=== PATIENT | female | born 1950 | race Two or more races ===

== ENCOUNTER 2024-07-14 20:33 | Inpatient (IN) | payer OTHER, MEDICAID ==
[~2024-07-14] VITALS: Ht 157.5 cm; Wt 90.7 kg
[2024-07-14 21:44] LABS: Basophils # (auto) 0.1 10 ^3/uL (0-0.2); Basophils % (auto) 2.4 % (0.0-2.0); Eosinophils # (auto) 0.2 10 ^3/uL (0-0.8); Eosinophils % (auto) 4.2 % (0.0-7.0); Hematocrit 34.6 % (36.0-46.0); Hemoglobin 11.6 g/dL (12.2-16.2); Lymphocytes # (auto) 1.1 10 ^3/uL (0.4-5.4); Lymphocytes % (auto) 29.1 % (10.0-50.0); Mean Corpuscular Hemoglobin 32.3 pg (28.0-32.0); Mean Corpuscular Hgb Conc. 33.6 g/dL (32.0-36.0); Mean Corpuscular Volume 96.2 fL (80.0-100.0); Monocytes # (auto) 0.4 10 ^3/uL (0-1.3); Monocytes % (auto) 9.6 % (0.0-12.0); Neutrophils % (auto) 54.7 % (37.0-80.0); Nucleated Red Blood Cells % 0.1 %; Platelet Count (auto) 141 10^3/uL (140-450); White Blood Cell 3.7 10^3/uL (4.4-10.8)
[2024-07-14 21:45] LABS: Red Cell Distribution Width 21.9 % (11.8-14.3)
[2024-07-14 22:00] VITALS: PULSE 107; RESP 17; O2SAT 97
[2024-07-14 22:01] LABS: Alanine Aminotransferase 80 U/L (7-40); Albumin 3.6 g/dL (3.2-4.8); Alkaline Phosphatase 60 U/L (46-116); Anion Gap 9 (5-15); Aspartate Aminotransferase 206 U/L (13-40); BUN/Creatinine Ratio 18.9 (10.0-20.0); Blood Urea Nitrogen 27 mg/dL (9-23); Calcium 9.8 mg/dL (8.7-10.4); Carbon Dioxide 27 mmol/L (20-31); Chloride 100 mmol/L (98-107); Potassium 4.6 mmol/L (3.5-5.1); Sodium 136 mmol/L (136-145)
[2024-07-14 22:02] LABS: Total Protein 7.2 g/dL (5.7-8.2)
[2024-07-14 22:10] LABS: Glucose 471 mg/dL (74-106)
[2024-07-14] MEDS: InsuLIN REG 1unit/0.01ml Soln (100units/ml) IV ONE ×2 (22:18→23:56)
[2024-07-15] VITALS (63 sets, daily range): BP systolic 79–126; BP diastolic 42–89; PULSE 76–116; RESP 12–33; TEMP 98.7–98.8; O2SAT 92–100
[2024-07-15] MEDS ORDERED: MORPHINE SULFATE INJ 2 MG/ml SYRG IV PRN
[2024-07-15] MEDS ORDERED: DEXTROSE (50%) 50ML SYRG IV PRN (00:15)
[2024-07-15] MEDS ORDERED: ONDANSETRON HCL 4 MG/2 ML VIAL IV PRN (00:15)
[2024-07-15] MEDS: NITROGLYCERIN 0.4 MG SL TAB SL PRN (00:55)
[2024-07-15] MEDS: ALBUMIN 25% 50 ML IV SCH (01:51)
[2024-07-15] MEDS: FUROSEMIDE 40 MG/4 ML VIAL IV ONE (02:02)
[2024-07-15] MEDS: PHENYLEPHRINE IV 250 ML IV SCH ×2 (03:59→15:11)
[2024-07-15] MEDS: InsuLIN REG 1unit/0.01ml Soln (100units/ml) SC SCH (04:07)
[2024-07-15] MEDS: ACCU-CHEK COMFORT CURVE STRIP VI SCH (04:09)
[2024-07-15] MEDS: FUROSEMIDE 20 MG/2 ML VIAL IV SCH (06:38)
[2024-07-15] MEDS: GABAPENTIN 300 MG CAP PO SCH (06:38)
[2024-07-15 10:02] LABS: Basophils # (auto) 0.1 10 ^3/uL (0-0.2); Basophils % (auto) 2.4 % (0.0-2.0); Eosinophils # (auto) 0.2 10 ^3/uL (0-0.8); Eosinophils % (auto) 5.4 % (0.0-7.0); Hematocrit 35.8 % (36.0-46.0); Hemoglobin 11.8 g/dL (12.2-16.2); Lymphocytes # (auto) 1.1 10 ^3/uL (0.4-5.4); Lymphocytes % (auto) 31.9 % (10.0-50.0); Mean Corpuscular Hemoglobin 31.4 pg (28.0-32.0); Mean Corpuscular Hgb Conc. 33.1 g/dL (32.0-36.0); Mean Corpuscular Volume 94.7 fL (80.0-100.0); Monocytes # (auto) 0.4 10 ^3/uL (0-1.3); Monocytes % (auto) 12.8 % (0.0-12.0); Neutrophils # (auto) 1.6 10 ^3/uL (1.6-8.6); Neutrophils % (auto) 47.5 % (37.0-80.0); Nucleated Red Blood Cells % 0.2 %; Platelet Count (auto) 118 10^3/uL (140-450); Red Blood Cells 3.78 10^6/uL (4.0-5.20); White Blood Cell 3.3 10^3/uL (4.4-10.8)
[2024-07-15 10:25] LABS: Alanine Aminotransferase 77 U/L (7-40); Albumin 4.1 g/dL (3.2-4.8); Alkaline Phosphatase 50 U/L (46-116); Anion Gap 7 (5-15); Aspartate Aminotransferase 215 U/L (13-40); BUN/Creatinine Ratio 20.5 (10.0-20.0); Blood Urea Nitrogen 25 mg/dL (9-23); Calcium 10.2 mg/dL (8.7-10.4); Carbon Dioxide 29 mmol/L (20-31); Chloride 104 mmol/L (98-107); Glucose 124 mg/dL (74-106); Magnesium 1.9 mg/dL (1.6-2.6); Potassium 3.8 mmol/L (3.5-5.1); Sodium 140 mmol/L (136-145)
[2024-07-15 10:26] LABS: Bilirubin, Total 1.1 mg/dL (0.2-1.0); Total Protein 7.4 g/dL (5.7-8.2)
[2024-07-15] MEDS: ASPirin 81 mg TAB PO SCH (12:18)
[2024-07-15 14:28] LABS: INR 1.18 (0.9-1.15); Prothrombin Time 12.4 sec (9.3-11.8)
[2024-07-15] MEDS ORDERED: GABA-339 PO (14:49)
[2024-07-15] MEDS ORDERED: VALP1CAP4 PO (14:49)
[2024-07-15] MEDS ORDERED: METO25TA5 PO (14:49)
[2024-07-15] MEDS ORDERED: ATOR-47 PO (14:49)
[2024-07-15] MEDS ORDERED: AMIO200T33 PO (14:49)
[2024-07-15] MEDS ORDERED: FERR325T24 PO (14:49)
[2024-07-15] MEDS ORDERED: SENN-62 PO (14:49)
[2024-07-15] MEDS ORDERED: SERT-206 PO (14:49)
[2024-07-15] MEDS ORDERED: RIVA20TA PO (14:49)
[2024-07-15] MEDS ORDERED: ASPI325T6 PO (14:49)
[2024-07-15] MEDS: SERTRALINE HCL 50 MG TAB PO ONE (15:32)
[2024-07-15] MEDS: VALPROIC ACID 250 MG/5 ML ORAL SOLN PO ONE (15:33)
[2024-07-15] MEDS: RIVAROXABAN 15 MG TAB PO SCH (18:09)
[2024-07-15] MEDS: ATORVASTATIN 20 MG TAB PO SCH (22:00)
[2024-07-15] MEDS: VALPROIC ACID 250 MG/5 ML ORAL SOLN PO SCH (22:00)
[2024-07-15] MEDS ORDERED: ATORVASTATIN 20 MG TAB PO SCH (22:00)
[2024-07-16 06:14] LABS: Anion Gap 8 (5-15); Calcium 9.4 mg/dL (8.7-10.4); Carbon Dioxide 25 mmol/L (20-31); Chloride 106 mmol/L (98-107); Potassium 3.5 mmol/L (3.5-5.1); Sodium 139 mmol/L (136-145)
[2024-07-16 06:20] LABS: BUN/Creatinine Ratio 16.8 (10.0-20.0); Blood Urea Nitrogen 17 mg/dL (9-23); Glucose 223 mg/dL (74-106)
[2024-07-16 07:25] VITALS: PULSE 117; RESP 11; O2SAT 96
[2024-07-16] MEDS ORDERED: VALPROIC ACID 250 MG/5 ML ORAL SOLN PO SCH (10:00)
[2024-07-16 10:04] LABS: Basophils # (auto) 0.1 10 ^3/uL (0-0.2); Basophils % (auto) 1.8 % (0.0-2.0); Eosinophils # (auto) 0.2 10 ^3/uL (0-0.8); Eosinophils % (auto) 6.2 % (0.0-7.0); Hematocrit 33.1 % (36.0-46.0); Hemoglobin 10.9 g/dL (12.2-16.2); Lymphocytes # (auto) 0.8 10 ^3/uL (0.4-5.4); Lymphocytes % (auto) 23.8 % (10.0-50.0); Mean Corpuscular Hemoglobin 32.2 pg (28.0-32.0); Mean Corpuscular Hgb Conc. 32.8 g/dL (32.0-36.0); Mean Corpuscular Volume 98.2 fL (80.0-100.0); Monocytes # (auto) 0.5 10 ^3/uL (0-1.3); Monocytes % (auto) 15.1 % (0.0-12.0); Neutrophils # (auto) 1.8 10 ^3/uL (1.6-8.6); Neutrophils % (auto) 53.1 % (37.0-80.0); Nucleated Red Blood Cells % 0.1 %; Platelet Count (auto) 116 10^3/uL (140-450); Red Blood Cells 3.38 10^6/uL (4.0-5.20); Red Cell Distribution Width 21.7 % (11.8-14.3); White Blood Cell 3.4 10^3/uL (4.4-10.8)
[2024-07-16] MEDS: METOPROLOL SUCCINATE XL 50 MG TAB PO SCH (10:56)
[2024-07-16] MEDS: ASPirin 81 mg TAB PO SCH (10:57)
[2024-07-16] MEDS: SERTRALINE HCL 50 MG TAB PO SCH (10:58)
[2024-07-16] MEDS: METOPROLOL TARTRATE 1MG/1ML-5ML VIAL IV ONE (12:08)
[2024-07-16] MEDS: METOPROLOL SUCCINATE XL 50 MG TAB PO ONE (13:14)
[2024-07-16 14:59] VITALS: PULSE 114; RESP 17; O2SAT 98
[2024-07-16 17:05] VITALS: BP 85/54; PULSE 97; RESP 17; TEMP 98.3; O2SAT 98
[2024-07-16] MEDS ORDERED: INSUINJ37 SC (17:18)
[2024-07-16] MEDS ORDERED: GLYB5TAB8 PO (17:18)
[2024-07-16] MEDS ORDERED: ERGO500086 PO (17:18)
[2024-07-16] MEDS ORDERED: ATOR20TA50 PO (17:18)
[2024-07-16] MEDS ORDERED: ASPI81CH74 PO (17:18)
[2024-07-16] MEDS ORDERED: METF-372 PO (17:18)
[2024-07-16 19:47] VITALS: BP 92/58
[2024-07-16 19:53] LABS: Urine Bacteria FEW /hpf (None Seen); Urine Blood 2+ /uL (Negative); Urine Clarity Clear (Clear); Urine Color Yellow (Yellow); Urine Mucus FEW (None Seen); Urine Protein, UAD 1+ (Negative); Urine Specific Gravity 1.018 (1.001-1.035); Urine Urobilinogen 3 mg/dL (Negative); Urine WBC 3 /hpf (0 - 5)
[2024-07-16 20:00] VITALS: PULSE 115; RESP 20; O2SAT 99
[2024-07-16 20:06] LABS: Amphetamine Screen, Urine Neg (NEGATIVE); Barbiturate Scree,Urine Neg (NEGATIVE); Benzodiazephine Screen, Urine Neg (NEGATIVE); Cocaine Screen, Urine Neg (NEGATIVE); Opiate Scree,Urine Neg (NEGATIVE); Phencyclidine Screen, Urine Neg (NEGATIVE)
[2024-07-16 20:07] LABS: Cannabinoid Screen, Urine Neg (NEGATIVE)
[2024-07-16 21:00] VITALS: BP 110/73; PULSE 117; RESP 19; TEMP 98; O2SAT 98
[2024-07-16] MEDS: GABAPENTIN 400 MG CAP PO SCH (21:32)
[2024-07-16] MEDS: INSULIN LANTUS (GLARGINE) 1 /0.01ml (100units/ml) SC SCH (21:48)
[2024-07-17] VITALS (8 sets, daily range): BP systolic 90–121; BP diastolic 52–82; PULSE 78–131; RESP 15–19; TEMP 97.8–98.3; O2SAT 97–100
[2024-07-17] MEDS: METOPROLOL SUCCINATE XL 50 MG TAB PO SCH (10:00)
[2024-07-17] MEDS: METOPROLOL TARTRATE 1MG/1ML-5ML VIAL IV ONE ×2 (15:16→19:23)
[2024-07-17] MEDS: SPIRONOLACTONE 25 MG TAB PO ONE (15:38)
[2024-07-17] MEDS: FUROSEMIDE 20 MG TAB PO SCH (17:22)
[2024-07-17 18:10] LABS: Basophils # (auto) 0 10 ^3/uL (0-0.2); Basophils % (auto) 1.2 % (0.0-2.0); Eosinophils # (auto) 0.1 10 ^3/uL (0-0.8); Eosinophils % (auto) 3.6 % (0.0-7.0); Hematocrit 32.4 % (36.0-46.0); Lymphocytes # (auto) 0.8 10 ^3/uL (0.4-5.4); Lymphocytes % (auto) 20.9 % (10.0-50.0); Mean Corpuscular Hemoglobin 32.3 pg (28.0-32.0); Mean Corpuscular Hgb Conc. 33.9 g/dL (32.0-36.0); Mean Corpuscular Volume 95.3 fL (80.0-100.0); Monocytes # (auto) 0.4 10 ^3/uL (0-1.3); Monocytes % (auto) 11.3 % (0.0-12.0); Neutrophils # (auto) 2.4 10 ^3/uL (1.6-8.6); Nucleated Red Blood Cells % 0.3 %; Platelet Count (auto) 127 10^3/uL (140-450); Red Cell Distribution Width 21.6 % (11.8-14.3); White Blood Cell 3.8 10^3/uL (4.4-10.8)
[2024-07-17 18:22] LABS: Alanine Aminotransferase 139 U/L (7-40); Albumin 3.6 g/dL (3.2-4.8); Alkaline Phosphatase 58 U/L (46-116); Anion Gap 5 (5-15); Aspartate Aminotransferase 385 U/L (13-40); BUN/Creatinine Ratio 26.9 (10.0-20.0); Calcium 9.7 mg/dL (8.7-10.4); Carbon Dioxide 31 mmol/L (20-31); Chloride 101 mmol/L (98-107); Glucose 327 mg/dL (74-106); Potassium 4.4 mmol/L (3.5-5.1); Sodium 137 mmol/L (136-145)
[2024-07-17 18:23] LABS: Bilirubin, Total 0.8 mg/dL (0.2-1.0)
[2024-07-17 18:24] LABS: Blood Urea Nitrogen 28 mg/dL (9-23); Total Protein 6.8 g/dL (5.7-8.2)
[2024-07-18] VITALS (8 sets, daily range): BP systolic 85–119; BP diastolic 56–79; PULSE 62–113; RESP 14–22; TEMP 97.2–98.9; O2SAT 96–100
[2024-07-18] MEDS: SPIRONOLACTONE 25 MG TAB PO SCH (10:00)
[2024-07-18] MEDS: LORazepam 2MG/ML-1ML VIAL IV PRN (10:53)
[2024-07-19] VITALS (8 sets, daily range): BP systolic 96–117; BP diastolic 52–78; PULSE 79–128; RESP 16–22; TEMP 98.1–98.6; O2SAT 98–100
[2024-07-19] MEDS ORDERED: ACETAMINOPHEN 325 MG TAB PO PRN (16:30)
[2024-07-19] MEDS: IBUPROFEN 600 MG TAB PO PRN (17:59)
[2024-07-20] VITALS (9 sets, daily range): BP systolic 84–101; BP diastolic 61–72; PULSE 72–108; RESP 17–18; TEMP 97.4–98.2; O2SAT 95–100
== END 2024-07-20 19:02 | disposition home health service (06) | DRG 100 ==
LOC: ER 20:33 → TELE-WESTW 23:57 → TELE 23:57 → TELE-WESTW 07-16 13:39
PROVIDERS: ADMIT Family Medicine; ATTEND Family Medicine
PROC: 4B02XSZ Measurement of Cardiac Pacemaker, External Approach (ICD-10-PCS; principal; 2024-07-19)
DX: G40.209 Localization-related (focal) (partial) symptomatic epilepsy and epileptic syndromes with complex partial seizures, not intractable, without status epilepticus (principal); I21.A1 Myocardial infarction type 2; J96.01 Acute respiratory failure with hypoxia; I50.23 Acute on chronic systolic (congestive) heart failure; D68.9 Coagulation defect, unspecified; I13.0 Hypertensive heart and chronic kidney disease with heart failure and stage 1 through stage 4 chronic kidney disease, or unspecified chronic kidney disease; G40.A09 Absence epileptic syndrome, not intractable, without status epilepticus; E11.42 Type 2 diabetes mellitus with diabetic polyneuropathy; E11.65 Type 2 diabetes mellitus with hyperglycemia; I95.9 Hypotension, unspecified; R74.01 Elevation of levels of liver transaminase levels; D64.9 Anemia, unspecified; I48.0 Paroxysmal atrial fibrillation; F32.A Depression, unspecified; F41.9 Anxiety disorder, unspecified; T45.515A Adverse effect of anticoagulants, initial encounter; D69.6 Thrombocytopenia, unspecified; N18.30 Chronic kidney disease, stage 3 unspecified; E11.22 Type 2 diabetes mellitus with diabetic chronic kidney disease; D72.819 Decreased white blood cell count, unspecified; Z91.199 Patient's noncompliance with other medical treatment and regimen due to unspecified reason; Z88.0 Allergy status to penicillin; Z79.899 Other long term (current) drug therapy; Z95.2 Presence of prosthetic heart valve; Z91.128 Patient's intentional underdosing of medication regimen for other reason; Z79.82 Long term (current) use of aspirin; Z79.01 Long term (current) use of anticoagulants; Y92.89 Other specified places as the place of occurrence of the external cause; Z95.0 Presence of cardiac pacemaker; Z86.73 Personal history of transient ischemic attack (TIA), and cerebral infarction without residual deficits; Z87.891 Personal history of nicotine dependence; Z83.3 Family history of diabetes mellitus
CPT/HCPCS: 36415; 70450; 71045; 80048; 80053; 80307; 81001; 82962; 83036; 83735; 83880; 84484; 85025; 85610; 85730; 87081; 93005; 93306; 93970; 95819; 96374; 96375; 97110; 97116; 97163; 97530; 99291; G0378; J1815